=== PATIENT | male | born 1985 | race Caucasian/White ===

== ENCOUNTER → 2020-04-20 | Outpatient (CLI) | payer OTHER ==
--- NOTE | 2020-04-20 15:15 | XR ---
EXAMINATION TYPE: XR thoracic spine complete DATE OF EXAM: 04/20/2020 COMPARISON: None HISTORY: Lifting injury, pain TECHNIQUE: Three-view thoracic spine FINDINGS: There are 12 thoracic type vertebral bodies. Pedicles are intact. Disc heights are preserve d. Vertebral body heights are preserved. IMPRESSION: 1. Normal three-view thoracic spine.
--- NOTE | 2020-04-20 16:34 | XR ---
EXAMINATION TYPE: XR cervical spine comp DATE OF EXAM: 04/20/2020 COMPARISON: None HISTORY: Pain TECHNIQUE: Five-view cervical spine. FINDINGS: There is disc space narrowing C6-7. There is a kyphosis centered at C6-7. Posterior spinal lamellar line is intact. Prevertebral space is normal. Some mild side bending towards the left is pre sent. There is right foraminal narrowing at C2-3 and minimally at C5-6. Left foramen may has some min imal diffuse foraminal narrowing. Remaining disc heights are preserved. Vertebral body heights are preserved. Odontoid is obscured with overlying occiput. IMPRESSION: 1. Degenerative disc changes C6-7. 2. Lower cervical spine kyphosis.
== END | disposition home or self-care (01) ==
LOC: RADXRMAIN 14:24
PROVIDERS: ATTEND Emergency Medicine
DX: M50.323 Other cervical disc degeneration at C6-C7 level (principal); M40.292 Other kyphosis, cervical region; S23.3XXA Sprain of ligaments of thoracic spine, initial encounter
CPT/HCPCS: 72050; 72072

== ENCOUNTER 2020-06-07 03:38 | Observation (INO) | payer BC ==
[2020-06-07] MEDS ORDERED: PANTOPRAZOLE 40 MG/10 ML VIAL IVP STA (04:01)
[2020-06-07] MEDS ORDERED: ONDANSETRON 4 MG/2 ML VIAL IVP STA (04:01)
[2020-06-07] MEDS ORDERED: SODIUM CHLORIDE 0.9% 1,000 ML IV STA (04:01)
--- NOTE | 2020-06-07 04:01 | ED ---
Abdominal Pain HPI - General Chief Complaint: Abdominal Pain Stated Complaint: abd pain Time Seen by Provider: 06/07/20 03:46 Source: patient Mode of arrival: ambulatory Limitations: no limitations - History of Present Illness Initial Comments: Wilton is a 34-year-old male who presents to the ER this morning for evaluation of abdominal pain. She reports that he woke from sleep around 1 AM with lower quadrant abdominal pain with associated nausea. He's had 3 episodes of vomiting in the last time noted some blood in his vomitus. Patient does report he's been suffering from acid reflux lately, he lost his job approximately 6 weeks ago and is put on weight believes this is contributing to his acid reflux. Patient reports that he has significant pain in his lower abdomen most severe on the right lower quadrant. Last bowel movement was yesterday and was normal in color caliber and consistency. He has no GI history or history of any ulcer colitis or Crohn's. No history of previous surgeries. - Related Data Home Medications Medication Instructions Recorded Confirmed FLUoxetine HCL [PROzac] 40 mg PO DAILY@1730 06/07/20 06/07/20 Famotidine [Pepcid AC] 10 mg PO BID PRN 06/07/20 06/07/20 Multivitamins, Thera [Multivitamin 1 tab PO DAILY 06/07/20 06/07/20 (formulary)] hydrOXYzine HCL [Atarax] 25 mg PO DAILY PRN 06/07/20 06/07/20 traZODone HCL 50 mg PO HS 06/07/20 06/07/20 Allergies Allergy/AdvReac Type Severity Reaction Status Date / Time aspirin Allergy Rash/Hives Verified 06/07/20 03:44 NSAIDS (Non-Steroidal Allergy Rash/Hives Verified 06/07/20 03:44 Anti-Inflamma Review of Systems ROS Statement: Those systems with pertinent positive or pertinent negative responses have been documented in the HPI. ROS Other: All systems not noted in ROS Statement are negative. Past Medical History Additional Past Medical History / Comment(s): anxiety Past Surgical History: No Surgical Hx Reported Past Psychological History: Anxiety, Depression Smoking Status: Current every day smoker Past Alcohol Use History: Occasional Past Drug Use History: None Reported General Exam - General Exam Comments Initial Comments: Physical Exam GENERAL: appears uncomfortable HENT: Normocephalic, Atraumatic. EYES: PERRL, EOMI PULMONARY: Unlabored respirations. CARDIOVASCULAR: RRR Warm and well perfused extremities ABDOMEN: tenderness to palpation in the right lower quadrant SKIN: No rashes or bruising : Deferred NEUROLOGIC: Alert and oriented Normal speech Normal gait MUSCULOSKELETAL: Moving all extremities with no apparent injury PSYCHIATRIC: No SI/HI Limitations: no limitations Course Vital Signs 06/07/20 03:40 Temperature 97.7 F Pulse Rate 93 Respiratory 20 Rate O2 Sat by Pulse 97 Oximetry Medical Decision Making - Medical Decision Making the patient was seen and evaluated history is obtained from patient has a history and physical exam are concerning for acute appendicitis given the right lower quadrant abdominal pain with associated nausea and vomiting Patient did have some streaky hematemesis with his last episode of vomiting but does have history of GERD, no significant blood loss labs reveal leukocytosis neutrophilia CT scan confirms an acute appendicitis CT results were discussed with Dr. Ring and who agrees with plan for nothing by mouth diet, IV fluids, pain management, Zosyn plan for OR the patient was updated and is agreeable - Lab Data Result diagrams: 06/07/20 04:08 06/07/20 04:08 Lab Results 06/07/20 06/07/20 06/07/20 Range/Units 04:08 04:08 04:08 WBC 15.7 H (3.8-10.6) k/uL RBC 4.82 (4.30-5.90) m/uL Hgb 14.4 (13.0-17.5) gm/dL Hct 42.2 (39.0-53.0) % MCV 87.7 (80.0-100.0) fL MCH 29.8 (25.0-35.0) pg MCHC 34.0 (31.0-37.0) g/dL RDW 12.7 (11.5-15.5) % Plt Count 228 (150-450) k/uL Neutrophils % 88 % Lymphocytes % 7 % Monocytes % 3 % Eosinophils % 2 % Basophils % 1 % Neutrophils # 13.8 H (1.3-7.7) k/uL Lymphocytes # 1.1 (1.0-4.8) k/uL Monocytes # 0.4 (0-1.0) k/uL Eosinophils # 0.3 (0-0.7) k/uL Basophils # 0.1 (0-0.2) k/uL Sodium 136 L (137-145) mmol/L Potassium 4.1 (3.5-5.1) mmol/L Chloride 108 H (98-107) mmol/L Carbon Dioxide 20 L (22-30) mmol/L Anion Gap 8 mmol/L BUN 14 (9-20) mg/dL Creatinine 0.86 (0.66-1.25) mg/dL Est GFR (CKD-EPI)AfAm >90 (>60 ml/min/1.73 sqM) Est GFR (CKD-EPI)NonAf >90 (>60 ml/min/1.73 sqM) Glucose 122 H (74-99) mg/dL Calcium 9.3 (8.4-10.2) mg/dL Total Bilirubin 0.4 (0.2-1.3) mg/dL AST 23 (17-59) U/L ALT 24 (4-49) U/L Alkaline Phosphatase 70 (38-126) U/L Total Protein 6.9 (6.3-8.2) g/dL Albumin 4.2 (3.5-5.0) g/dL Lipase 207 (23-300) U/L Urine Color Yellow Urine Appearance Clear (Clear) Urine pH 5.5 (5.0-8.0) Ur Specific [place] 1.019 (1.001-1.035) Urine Protein Negative (Negative) Urine Glucose (UA) Negative (Negative) Urine Ketones Negative (Negative) Urine Blood Negative (Negative) Urine Nitrite Negative (Negative) Urine Bilirubin Negative (Negative) Urine Urobilinogen <2.0 (<2.0) mg/dL Ur Leukocyte Esterase Negative (Negative) Disposition Clinical Impression: Acute appendicitis Disposition: ADMITTED IP TO THIS HOSP Condition: Stable Is patient prescribed a controlled substance at d/c from ED?: No
[2020-06-07 04:25] LABS: Basophils # (A) 0.1 k/uL (0-0.2); Basophils % (A) 1 %; Eosinophils # (A) 0.3 k/uL (0-0.7); Eosinophils % (A) 2 %; HCT 42.2 % (39.0-53.0); HGB 14.4 gm/dL (13.0-17.5); Lymphocytes # (A) 1.1 k/uL (1.0-4.8); Lymphocytes % (A) 7 %; MCH 29.8 pg (25.0-35.0); MCV 87.7 fL (80.0-100.0); Mean Platelet Volume 7.6; Monocytes # (A) 0.4 k/uL (0-1.0); Monocytes % (A) 3 %; Neutrophils # (A) 13.8 k/uL (1.3-7.7); Neutrophils % (A) 88 %; Platelet Count 228 k/uL (150-450); RBC 4.82 m/uL (4.30-5.90); RDW 12.7 % (11.5-15.5); WBC 15.7 k/uL (3.8-10.6)
[2020-06-07 04:26] LABS: Appearance,Urine Clear (Clear); Bilirubin,Urine Negative (Negative); Blood,Urine Negative (Negative); Color,Urine Yellow; Glucose,Urine (UA) Negative (Negative); Ketones,Urine Negative (Negative); Leukocyte Esterase,Urine Negative (Negative); Nitrite,Urine Negative (Negative); PH, Urine 5.5 (5.0-8.0); Protein,Urine Negative (Negative); Specific Gravity,Urine 1.019 (1.001-1.035); Urobilinogen,Urine <2.0 mg/dL (<2.0)
[2020-06-07 04:36] LABS: ALT 24 U/L (4-49); AST 23 U/L (17-59); African American GFR (CKD) >90 (>60 ml/min/1.73 sqM); Albumin 4.2 g/dL (3.5-5.0); Alkaline Phosphatase 70 U/L (38-126); Anion Gap 8 mmol/L; Blood Urea Nitrogen 14 mg/dL (9-20); Calcium 9.3 mg/dL (8.4-10.2); Carbon Dioxide 20 mmol/L (22-30); Chloride 108 mmol/L (98-107); Glucose 122 mg/dL (74-99); Lipase 207 U/L (23-300); Non-African American GFR(CKD) >90 (>60 ml/min/1.73 sqM); Potassium 4.1 mmol/L (3.5-5.1); Sodium 136 mmol/L (137-145); Total Bilirubin 0.4 mg/dL (0.2-1.3); Total Protein 6.9 g/dL (6.3-8.2)
--- NOTE | 2020-06-07 05:12 | CT ---
EXAM: CT Abdomen and Pelvis With Intravenous Contrast CLINICAL HISTORY: ITS.REASON CT Reason: appy TECHNIQUE: Axial computed tomography images of the abdomen and pelvis with intravenous contrast. CTDI is 24.87 mGy and DLP is 1074.9 mGy-cm. This CT exam was performed using one or more of the following dose reduction techniques: automated exposure control, adjustment of the mA and/or kV according to patient size, and/or use of iterative reconstruction technique. COMPARISON: No relevant prior studies available. FINDINGS: Lung bases: Unremarkable. ABDOMEN: Liver: Unremarkable. Gallbladder and bile ducts: Unremarkable. Pancreas: Unremarkable. Spleen: Unremarkable. Adrenals: Unremarkable. Kidneys and ureters: Unremarkable. Stomach and bowel: Unremarkable. PELVIS: Appendix: Dilated appendix measured to 11 mm with adjacent stranding suggesting acute nonperforated appendicitis. Bladder: Unremarkable. Reproductive: Unremarkable as visualized. ABDOMEN and PELVIS: Intraperitoneal space: Unremarkable. Bones/joints: No acute fracture. No dislocation. Soft tissues: Unremarkable. Vasculature: Unremarkable. Lymph nodes: Unremarkable. Other findings: Lower thorax is unremarkable IMPRESSION: Dilated appendix measuring up to 11 mm with adjacent stranding suggesting acute nonperforated appendicitis.
[2020-06-07] MEDS ORDERED: PIPERACILLIN-TAZOBACTAM 3.375 GM in SODIUM CHLORIDE 0.9% 100 ML IVPB STA (05:15)
[2020-06-07] MEDS ORDERED: NALOXONE 0.4 MG/ML 1 ML VIAL IV PRN (05:31)
[2020-06-07] MEDS ORDERED: MORPHINE SULFATE 4 MG/ML SYRINGE IV PRN (05:31)
[2020-06-07] MEDS: SODIUM CHLORIDE 0.9% 1,000 ML IV SCH ×3 (06:01→18:16)
[2020-06-07] MEDS ORDERED: NICOTINE 14MG/24HR PATCH TRANSDERM STA (09:49)
[2020-06-07] MEDS ORDERED: ONDANSETRON 4 MG/2 ML VIAL IVP PRN (09:49)
--- NOTE | 2020-06-07 09:56 | P.GSHP ---
History of Present Illness H&P Date: 06/07/20 CHIEF COMPLAINT: Right lower quadrant abdominal pain HISTORY OF PRESENT ILLNESS: This is a 34-year-old male with a known history of nicotine dependence, GERD and anxiety. Patient presents to emergency room with complaints of sharp right lower quadrant pain that started around 1 AM. He he reports the pain is about 8 out of 10. He did have some nausea and vomiting. He also reports that he has had some achiness in the right lower abdomen for a little while now. The sharp pain started this morning. He denies any fever, chills or sweats. Denies any change in bowel movements. Patient has been admitted for acute appendicitis. PAST MEDICAL HISTORY: See list. PAST SURGICAL HISTORY: See list. MEDICATIONS: See list. ALLERGIES: See list. SOCIAL HISTORY: No illicit drug use. REVIEW OF SYSTEMS: CONSTITUTIONAL: Denies fever or chills. HEENT: Denies blurred vision, vision changes, or eye pain. Denies hemoptysis CARDIOVASCULAR: Denies chest pain or pressure. RESPIRATORY: No shortness of breath. GASTROINTESTINAL: See HPI for pertinent findings HEMATOLOGIC: Denies bleeding disorders. GENITOURINARY: Denies any blood in urine or increased urinary frequency. SKIN: Denies pruitis. Denies rash. PHYSICAL EXAM: VITAL SIGNS: Reviewed GENERAL: Well-developed in no acute distress. HEENT: No sclera icterus. Extraocular movements grossly intact. Moist buccal mucosa. Head is atraumatic, normocephalic. No nasal drainage. ABDOMEN: Soft. Nondistended. Tenderness in the right lower quadrant NEUROLOGIC: Alert and oriented. Cranial nerves II through XII grossly intact. LABORATORY DATA: WBC 15.7 Lipase 207 LFTs normal UA negative IMAGING: Computed tomography scan of abdomen and pelvis shows dilated appendix measuring up to 11 mm with adjacent stranding suggesting acute nonperforated appendicitis ASSESSMENT: 1. Acute appendicitis 2. Nicotine dependence 3. Generalized anxiety disorder PLAN: -Patient scheduled for laparoscopic appendectomy today with Dr. Ring -Keep patient nothing by mouth -Continue IV fluids -Continue IV antibiotics -Add nicotine patch Physician Virologist note has been reviewed by physician. Signing provider agrees with the documented findings, assessment, and plan of care. Past Medical History Additional Past Medical History / Comment(s): anxiety History of Any Multi-Drug Resistant Organisms: None Reported Past Surgical History: No Surgical Hx Reported Smoking Status: Current every day smoker Medications and Allergies Home Medications Medication Instructions Recorded Confirmed Type FLUoxetine HCL [PROzac] 40 mg PO DAILY@1730 06/07/20 06/07/20 History Famotidine [Pepcid AC] 10 mg PO BID PRN 06/07/20 06/07/20 History Multivitamins, Thera [Multivitamin 1 tab PO DAILY 06/07/20 06/07/20 History (formulary)] hydrOXYzine HCL [Atarax] 25 mg PO DAILY PRN 06/07/20 06/07/20 History traZODone HCL 50 mg PO HS 06/07/20 06/07/20 History Allergies Allergy/AdvReac Type Severity Reaction Status Date / Time aspirin Allergy Rash/Hives Verified 06/07/20 03:44 NSAIDS (Non-Steroidal Allergy Rash/Hives Verified 06/07/20 03:44 Anti-Inflamma Surgical - Exam Vital Signs Temp Pulse Resp Pulse Ox 97.7 F 93 20 97 06/07/20 03:40 06/07/20 03:40 06/07/20 03:40 06/07/20 03:40 Results - Labs 06/07/20 04:08 06/07/20 04:08 Abnormal Lab Results - Last 24 Hours (Table) 06/07/20 06/07/20 Range/Units 04:08 04:08 WBC 15.7 H (3.8-10.6) k/uL Neutrophils # 13.8 H (1.3-7.7) k/uL Sodium 136 L (137-145) mmol/L Chloride 108 H (98-107) mmol/L Carbon Dioxide 20 L (22-30) mmol/L Glucose 122 H (74-99) mg/dL Diabetes panel 06/07/20 Range/Units 04:08 Sodium 136 L (137-145) mmol/L Potassium 4.1 (3.5-5.1) mmol/L Chloride 108 H (98-107) mmol/L Carbon Dioxide 20 L (22-30) mmol/L BUN 14 (9-20) mg/dL Creatinine 0.86 (0.66-1.25) mg/dL Glucose 122 H (74-99) mg/dL Calcium 9.3 (8.4-10.2) mg/dL AST 23 (17-59) U/L ALT 24 (4-49) U/L Alkaline Phosphatase 70 (38-126) U/L Total Protein 6.9 (6.3-8.2) g/dL Albumin 4.2 (3.5-5.0) g/dL Calcium panel 06/07/20 Range/Units 04:08 Calcium 9.3 (8.4-10.2) mg/dL Albumin 4.2 (3.5-5.0) g/dL Pituitary panel 06/07/20 Range/Units 04:08 Sodium 136 L (137-145) mmol/L Potassium 4.1 (3.5-5.1) mmol/L Chloride 108 H (98-107) mmol/L Carbon Dioxide 20 L (22-30) mmol/L BUN 14 (9-20) mg/dL Creatinine 0.86 (0.66-1.25) mg/dL Glucose 122 H (74-99) mg/dL Calcium 9.3 (8.4-10.2) mg/dL Adrenal panel 06/07/20 Range/Units 04:08 Sodium 136 L (137-145) mmol/L Potassium 4.1 (3.5-5.1) mmol/L Chloride 108 H (98-107) mmol/L Carbon Dioxide 20 L (22-30) mmol/L BUN 14 (9-20) mg/dL Creatinine 0.86 (0.66-1.25) mg/dL Glucose 122 H (74-99) mg/dL Calcium 9.3 (8.4-10.2) mg/dL Total Bilirubin 0.4 (0.2-1.3) mg/dL AST 23 (17-59) U/L ALT 24 (4-49) U/L Alkaline Phosphatase 70 (38-126) U/L Total Protein 6.9 (6.3-8.2) g/dL Albumin 4.2 (3.5-5.0) g/dL
[2020-06-07] MEDS ORDERED: IV FLUID CONTINUATION 1,000 ML IV ONE (15:48)
[2020-06-07] MEDS ORDERED: HEPARIN SODIUM,PORCINE 5,000 UNIT/ML 1 ML VIAL ONE (16:28)
[2020-06-07] MEDS ORDERED: BUPIVACAINE (PF) 0.25% 30 ML VIAL SQ ONE (17:02)
--- NOTE | 2020-06-07 17:22 | P.OP ---
Date of Procedure: 06/07/20 Preoperative Diagnosis: Acute appendicitis Postoperative Diagnosis: Acute appendicitis Procedure(s) Performed: Laparoscopic appendectomy Anesthesia: LANRE Surgeon: Ken Ring Estimated Blood Loss (ml): 5 Pathology: other (Appendix) Condition: stable Disposition: PACU Description of Procedure: The patient's placed on the operating table in the supine position. The patient received general anesthesia. The abdomen was prepped and draped in the usual sterile fashion. The skin was anesthetized 1% local Xylocaine at the trocar sites. Using an 11 blade the skin was incised at the umbilicus. The umbilicus was grasped with a [place] clamp and then a Veress needle was placed into the peritoneal cavity. Position of the Veress needle was confirmed with positive drop test. After adequate insufflation a 5 mm trocar was placed into the peritoneal cavity. The abdomen was further insufflated. And then the laparoscope was placed in the peritoneal cavity. Next a 5 mm trocar was placed in the midline suprapubic position. And then a 10 mm trocar was placed in the midline epigastric position. The patient was rotated with the right side up and in Trendelenburg. The appendix was visualized. The appendix appeared to be inflamed. The appendix was grasped and then using the Harmonic scissors the mesoappendix was divided. A PDS Endoloop was then placed around the base of the appendix. And then the appendix was divided using Harmonic scissors. The appendix was placed into an Endo Catch and brought out through the 10 mm trocar site. The abdomen was irrigated. There is no bleeding seen. The trochars withdrawn. The skin was closed interrupted 3-0 Monocryl suture. Dermabond dressing was applied. Patient was sent to recovery room in stable condition.
[2020-06-07] MEDS ORDERED: ONDANSETRON 4 MG TAB PO PRN (17:23)
[2020-06-07] MEDS ORDERED: MORPHINE SULFATE 4 MG/ML SYRINGE IVP ONE (17:48)
[2020-06-07] MEDS: PIPERACILLIN-TAZOBACTAM 3.375 GM in SODIUM CHLORIDE 0.9% 100 ML IVPB SCH (18:41)
[2020-06-07] MEDS ORDERED: hydrOXYzine HCL 25 MG TAB PO PRN (19:06)
[2020-06-07] MEDS: HYDROcodone/APAP 7.5-325MG 1 EACH TAB PO PRN (20:00)
[2020-06-07] MEDS ORDERED: traZODone HCL 50 MG TAB PO SCH (21:00)
[2020-06-08] MEDS: SODIUM CHLORIDE 0.9% 1,000 ML IV SCH (00:23)
[2020-06-08] MEDS: PIPERACILLIN-TAZOBACTAM 3.375 GM in SODIUM CHLORIDE 0.9% 100 ML IVPB SCH ×2 (01:05→08:00)
[2020-06-08] MEDS: HYDROcodone/APAP 7.5-325MG 1 EACH TAB PO PRN ×2 (03:41→10:37)
--- NOTE | 2020-06-08 05:25 | CONS ---
CONSULTATION REASON FOR CONSULTATION: Advice regarding anxiety and other medical issues requested by Dr. Ring. HISTORY OF PRESENT ILLNESS: This 34-year-old gentleman with a past medical history of anxiety, depression, history of smoking, was admitted to [facility] with complaints of abdominal pain for several days. The CAT scan of the abdomen showed dilated appendix measuring up to 11 cm with adjacent stranding. The patient underwent a laparoscopic appendectomy by Dr. Ring. The patient tolerated the procedure well. The patient being closely monitored at this time. There is no history of any fever or rigors. No history of headache, loss of consciousness, seizures at this time. No history of chest pain or palpitation. PAST MEDICAL HISTORY: History anxiety, depression. History of nicotine dependence. MEDICATIONS: Medications prior to admission, multivitamins, Pepcid, Prozac, Atarax, trazodone. ALLERGIES: ASPIRIN, NSAIDS. FAMILY HISTORY: No history of heart disease or strokes in the family. SOCIAL HISTORY: History of smoking. No history of alcohol intake. REVIEW OF SYSTEMS: ENT: No diminished hearing or diminished vision. CARDIOVASCULAR SYSTEM: No angina. RESPIRATORY SYSTEM: As mentioned earlier. GI: As mentioned earlier. : No dysuria. NERVOUS SYSTEM: No numbness or weakness. ALLERGY/IMMUNOLOGY: No history of asthma or hayfever. MUSCULOSKELETAL: As mentioned earlier. HEMATOLOGY: No history of anemia. ENDOCRINE: No history of diabetes mellitus or hypothyroidism. CONSTITUTIONAL: As mentioned earlier. DERMATOLOGY: Negative. RHEUMATOLOGY: Negative. PSYCHIATRY: As mentioned earlier. PHYSICAL EXAMINATION: The patient is alert and oriented x3. Pulse is 66, blood pressure 134/74, respirations 16, temperature 98 degrees, pulse ox 99% on 2 L. HEENT: Conjunctivae normal. NECK: No jugular venous distention. CARDIOVASCULAR: S1, S2 muffed. RESPIRATORY: Breath sounds diminished at the bases. No rhonchi, no crackles. ABDOMEN: Soft, status post surgery. LEGS: No edema, no swelling. NERVOUS SYSTEM: Higher function as mentioned earlier. Moves all 4 limbs. No focal motor or sensory deficits. LYMPHATICS: No lymphadenopathy of the neck, axillae or groin. SKIN: No ulcer, rash or bleeding. JOINTS: No active deforming arthropathy. LABS: WBC 15.7. Sodium 136. ASSESSMENT: 1. Acute appendicitis, status post laparoscopic appendectomy. 2. Increased WBC. 3. Mild hyponatremia. 4. Increased random blood sugar. 5. History of anxiety, depression. 6. History of continued ongoing nicotine dependence. RECOMMENDATIONS AND DISCUSSION: This 34-year-old gentleman presented after surgery. At this time I recommend to continue current medication, home medications, broad-spectrum IV antibiotics initiated. Smoking cessation advised. Proton pump inhibitors. DVT prophylaxis. We will follow the patient closely with you. Thank you Dr. Ring for letting us participate in the care of this patient. [id number] / IJN: [id number] /
[2020-06-08 07:56] VITALS: BP 99/63; PULSE 62; RESP 16; TEMP 97.9
[2020-06-08 07:58] LABS: Basophils # (A) 0.1 k/uL (0-0.2); Basophils % (A) 1 %; Eosinophils # (A) 0.2 k/uL (0-0.7); Eosinophils % (A) 3 %; HCT 38.5 % (39.0-53.0); HGB 12.5 gm/dL (13.0-17.5); Lymphocytes # (A) 1.8 k/uL (1.0-4.8); Lymphocytes % (A) 24 %; MCH 29.4 pg (25.0-35.0); MCHC 32.6 g/dL (31.0-37.0); MCV 90.2 fL (80.0-100.0); Monocytes # (A) 0.4 k/uL (0-1.0); Monocytes % (A) 6 %; Neutrophils # (A) 4.9 k/uL (1.3-7.7); Neutrophils % (A) 65 %; Platelet Count 217 k/uL (150-450); RBC 4.26 m/uL (4.30-5.90); WBC 7.5 k/uL (3.8-10.6)
[2020-06-08 08:02] LABS: African American GFR (CKD) >90 (>60 ml/min/1.73 sqM); Anion Gap 4 mmol/L; Blood Urea Nitrogen 8 mg/dL (9-20); Calcium 8.1 mg/dL (8.4-10.2); Carbon Dioxide 25 mmol/L (22-30); Chloride 110 mmol/L (98-107); Glucose 107 mg/dL (74-99); Non-African American GFR(CKD) >90 (>60 ml/min/1.73 sqM); Potassium 3.9 mmol/L (3.5-5.1); Sodium 139 mmol/L (137-145)
[2020-06-08] MEDS ORDERED: ENOXAPARIN 40 MG/0.4 ML SYRINGE SQ SCH (09:00)
[2020-06-08] MEDS ORDERED: NICOTINE 14MG/24HR PATCH TRANSDERM SCH (09:00)
[2020-06-08] MEDS ORDERED: MULTIVITAMINS, THERA 1 EACH TAB PO SCH (09:00)
[2020-06-08] MEDS ORDERED: PANTOPRAZOLE 40 MG/10 ML VIAL IVP SCH (09:00)
--- NOTE | 2020-06-08 12:49 | P.DS ---
Providers Date of admission: 06/07/20 05:31 Expected date of discharge: 06/08/20 Attending physician: Ken Ring Consults: 06/07/20 13:37 Consult Physician Routine Consulting Provider: Evangelista Silverio Consult Reason/Comments: medical management Do you want consulting provider notified?: Yes Primary care physician: Norberto Turcios MD Hospital Course: Discharge diagnosis 1. Acute appendicitis status post laparoscopic appendectomy Hospital course This is a 34-year-old male with a known history of nicotine dependence, GERD and anxiety. Patient presents to emergency room with complaints of sharp right lower quadrant pain that started around 1 AM. He he reports the pain is about 8 out of 10. He did have some nausea and vomiting. Computed tomography scan of abdomen and pelvis shows dilated appendix measuring up to 11 mm with adjacent stranding suggesting acute nonperforated appendicitis. White count was elevated. Patient underwent laparoscopic appendectomy. Patient tolerated surgery well. His pain is controlled. He denies any nausea or vomiting. He's tolerating regular diet. He is afebrile. White count has normalized. Patient is stable for discharge. Computed tomography scan of abdomen and pelvis shows dilated appendix measuring up to 11 mm with adjacent stranding suggesting acute nonperforated appendicitis Patient Condition at Discharge: Stable Plan - Discharge Summary Discharge Rx Participant: No New Discharge Prescriptions: New Docusate [Colace] 100 mg PO BID #30 capsule Hydrocodone/Acetaminophen [[place] 5-325] 1 tab PO Q6HR PRN 3 Days #12 tab PRN Reason: Pain Continue Multivitamins, Thera [Multivitamin (formulary)] 1 tab PO DAILY FLUoxetine HCL [PROzac] 40 mg PO DAILY@1730 hydrOXYzine HCL [Atarax] 25 mg PO DAILY PRN PRN Reason: Anxiety traZODone HCL 50 mg PO HS Famotidine [Pepcid AC] 10 mg PO BID PRN PRN Reason: GERD Discharge Medication List FLUoxetine HCL [PROzac] 40 mg PO DAILY@1730 06/07/20 [History] Famotidine [Pepcid AC] 10 mg PO BID PRN 06/07/20 [History] Multivitamins, Thera [Multivitamin (formulary)] 1 tab PO DAILY 06/07/20 [History] hydrOXYzine HCL [Atarax] 25 mg PO DAILY PRN 06/07/20 [History] traZODone HCL 50 mg PO HS 06/07/20 [History] Docusate [Colace] 100 mg PO BID #30 capsule 06/08/20 [Rx] Hydrocodone/Acetaminophen [[place] 5-325] 1 tab PO Q6HR PRN 3 Days #12 tab 06/08/20 [Rx] Follow up Appointment(s)/Referral(s): Norberto Turcios MD [Primary Care Provider] - 1-2 days Ken Ring MD [STAFF PHYSICIAN] - 1 Week Activity/Diet/Wound Care/Special Instructions: No driving while taking [place] No lifting over 10 pounds You may shower. No soaking or tub baths for 2 weeks Very light activity until you are reevaluated at your follow up appointment with your surgeon Diet regular Discharge Disposition: HOME SELF-CARE
[2020-06-08] MEDS ORDERED: FLUoxetine HCL 20 MG CAP PO SCH (17:30)
--- NOTE | 2020-06-08 20:58 | PN ---
PROGRESS NOTE DATE OF SERVICE: 06/08/2020 This 34-year-old gentleman who presented with acute appendicitis underwent laparoscopic appendectomy. No chest pain. No palpitations. No fever. PHYSICAL EXAMINATION: Alert and oriented x3. Pulse is 62, blood pressure 99/63, respirations 16, temperature 97.2, pulse ox 94% on room air. HEENT: Conjunctivae normal. NECK: No jugular venous distention. CARDIOVASCULAR SYSTEM: S1, S2 muffled. RESPIRATORY SYSTEM: Breath sounds diminished at the bases. No rhonchi. No crackles. ABDOMEN: Soft. Status post surgery. LEGS: No edema. No swelling. NERVOUS SYSTEM: No focal deficit. LABS: WBC 7.5, hemoglobin 12.4. Sodium 139, potassium 3.9. ASSESSMENT: 1. Acute appendicitis, status post laparoscopic appendectomy. 2. Increased white count. 3. Mild hyponatremia. 4. Increased random blood sugar. 5. History of anxiety, depression. 6. History of continued ongoing nicotine dependence. RECOMMENDATIONS AND DISCUSSION: I recommend to continue current medications, continue with the monitoring, symptomatic treatment. Continue incentive spirometry. Resume the home medications. DVT prophylaxis. Follow closely with the primary physician. Thank you, Dr. Ring. MMODL / IJN: [id number] /
[2020-06-09] MEDS ORDERED: PANTOPRAZOLE 40 MG TABLET PO SCH (07:30)
== END 2020-06-08 15:41 | disposition home or self-care (01) ==
LOC: EC 03:38 → 3NCARDOBS 05:31
PROVIDERS: ADMIT Surgery; ATTEND Surgery
DX: K35.80 Unspecified acute appendicitis (principal); E87.1 Hypo-osmolality and hyponatremia; R73.9 Hyperglycemia, unspecified; K21.9 Gastro-esophageal reflux disease without esophagitis; R63.5 Abnormal weight gain; F41.1 Generalized anxiety disorder; F32.9 Major depressive disorder, single episode, unspecified; F17.200 Nicotine dependence, unspecified, uncomplicated; Z68.31 Body mass index [BMI] 31.0-31.9, adult; Z79.899 Other long term (current) drug therapy; Z88.6 Allergy status to analgesic agent; K08.89 Other specified disorders of teeth and supporting structures
CPT/HCPCS: 96374; 96375; 99285; 36415; 88304; 80053; 80048; 83690; 85025 ×2; 81003; 74177; 44970; G0378 ×2; S4990 ×2; J2543 ×2; J2270; J2405; J1650; C9113 ×2; Q9967

== ENCOUNTER → 2020-07-28 | Outpatient (CLI) | payer BC ==
[2020-07-28 08:14] LABS: Basophils # (A) 0.1 k/uL (0-0.2); Basophils % (A) 1 %; Eosinophils # (A) 0.2 k/uL (0-0.7); Eosinophils % (A) 3 %; HCT 45.3 % (39.0-53.0); HGB 15.4 gm/dL (13.0-17.5); Lymphocytes # (A) 1.3 k/uL (1.0-4.8); Lymphocytes % (A) 22 %; MCH 29.9 pg (25.0-35.0); MCHC 33.9 g/dL (31.0-37.0); MCV 88.2 fL (80.0-100.0); Mean Platelet Volume 7.8; Monocytes # (A) 0.3 k/uL (0-1.0); Monocytes % (A) 5 %; Neutrophils # (A) 4.1 k/uL (1.3-7.7); Neutrophils % (A) 67 %; Platelet Count 189 k/uL (150-450); RBC 5.14 m/uL (4.30-5.90); RDW 12.4 % (11.5-15.5); WBC 6.2 k/uL (3.8-10.6)
[2020-07-28 17:21] LABS: Albumin 4.9 g/dL (3.80-4.90); Albumin/Globulin Ratio 2.58 (1.60-3.17); Anion Gap 9.1 mmol/L (4.00-12.00); Calcium 9.3 mg/dL (8.7-10.3); Carbon Dioxide 24.9 mmol/L (21.6-31.8); Chol/HDL Ratio 4.96; Globulin 1.9 g/dL (1.6-3.3); LDL Cholesterol,Calculated 147.6 mg/dL (0.0-131.0); Non-African American GFR(CKD) 117.4 (60.0-200.0); Potassium 4.3 mmol/L (3.5-5.5); Total Bilirubin 0.3 mg/dL (0.3-1.2); Total Protein 6.8 g/dL (6.2-8.2); VLDL Calculation 34.4 mg/dL (5.00-40.00)
[2020-07-28 17:30] LABS: T4, Free (Free Thyroxine) 1.2 ng/dL (0.80-1.80)
[2020-07-28 19:12] LABS: Hemoglobin A1C 5.3 % (4.0-6.0)
== END | disposition home or self-care (01) ==
LOC: LABWHC1 07:31
PROVIDERS: ATTEND Family Medicine
DX: Z00.01 Encounter for general adult medical examination with abnormal findings (principal); E66.9 Obesity, unspecified; Z68.30 Body mass index [BMI] 30.0-30.9, adult
CPT/HCPCS: 36415; 80053; 80061; 83036; 84439; 84443; 85025

== ENCOUNTER 2023-03-21 16:46 | Emergency (ER) | payer BC ==
[2023-03-21] MEDS ORDERED: DIPH,PERTUS(ACELL)TETVAC-LF 0.5 ML VIAL IM ONE (17:06)
[2023-03-21] MEDS ORDERED: LIDOCAINE 1% INJ 10MG/ML (20 ML MDV) SQ ONE (17:07)
[2023-03-21 19:00] VITALS: BP 127/84; PULSE 89; RESP 18; TEMP 98
--- NOTE | 2023-03-21 19:03 | ED ---
General Adult HPI - General Chief complaint: Wound/Laceration Stated complaint: laceration R hand Time Seen by Provider: 03/21/23 17:06 Source: patient Mode of arrival: ambulatory Limitations: no limitations - History of Present Illness Initial comments: A 37-year-old male presenting to the ED with a chief complaint of laceration. Patient states that he was washing a glass when another glass fell on top of it causing it to break. States that the glass shards cut his right first finger. Tetanus status unknown. No other injuries at this time. No other complaints. - Related Data Home Medications Medication Instructions Recorded Confirmed FLUoxetine HCL [PROzac] 40 mg PO DAILY@1730 06/07/20 06/07/20 Famotidine [Pepcid AC] 10 mg PO BID PRN 06/07/20 06/07/20 Multivitamins, Thera [Multivitamin 1 tab PO DAILY 06/07/20 06/07/20 (formulary)] hydrOXYzine HCL [Atarax] 25 mg PO DAILY PRN 06/07/20 06/07/20 traZODone HCL 50 mg PO HS 06/07/20 06/07/20 Previous Rx's Medication Instructions Recorded Docusate [Colace] 100 mg PO BID #30 capsule 06/08/20 Hydrocodone/Acetaminophen [[place] 1 tab PO Q6HR PRN 3 Days #12 tab 06/08/20 5-325] Cephalexin [Keflex] 500 mg PO Q6HR 5 Days #20 cap 03/21/23 Allergies Allergy/AdvReac Type Severity Reaction Status Date / Time aspirin Allergy Rash/Hives Verified 03/21/23 17:06 NSAIDS (Non-Steroidal Allergy Rash/Hives Verified 03/21/23 17:06 Anti-Inflamma Review of Systems ROS Statement: Those systems with pertinent positive or pertinent negative responses have been documented in the HPI. ROS Other: All systems not noted in ROS Statement are negative. Past Medical History Additional Past Medical History / Comment(s): anxiety History of Any Multi-Drug Resistant Organisms: None Reported Past Surgical History: No Surgical Hx Reported Past Psychological History: Anxiety, Depression Smoking Status: Former smoker Past Alcohol Use History: None Reported Past Drug Use History: Marijuana General Exam Limitations: no limitations General appearance: alert, in no apparent distress Eye exam: Present: normal appearance Neck exam: Present: normal inspection Respiratory exam: Present: normal lung sounds bilaterally Cardiovascular Exam: Present: regular rate, normal rhythm GI/Abdominal exam: Present: soft Extremities exam: Present: other (Partial Skin avulsion of the right first finger. Small approximately half a centimeter avulsion of the dorsal aspect at the second MCP joint. Full strength and sensation of the fingers with opposition and extension of the thumb is intact. Good Capillary refill.) Neurological exam: Present: alert, oriented X3 Course Vital Signs 03/21/23 03/21/23 17:02 18:59 Temperature 98.1 F 98 F Pulse Rate 106 H 89 Respiratory 20 18 Rate Blood Pressure 131/90 127/84 O2 Sat by Pulse 98 98 Oximetry Procedures - Laceration Laceration #1 Indication: laceration Site: upper extremity Size (cm): 3 (3 x 3 cm partial skin avulsion) Description: linear, irregular Sedation/Analgesia: none Anesthetic Used: lidocaine 1% Anesthesia Technique: local infiltration Amount (mls): 5 Pre-repair: wound explored, irrigated extensively Type of Sutures: nylon Size of Sutures: 5-0 Number of Sutures: 12 Patient Tolerated Procedure: well, no complications Medical Decision Making - Medical Decision Making Was pt. sent in by a medical professional or institution ([facility], [employer], urgent care, hospital, or care home...) When possible be specific @ -No Did you speak to anyone other than the patient for history (EMS, parent, family, police, friend...)? What history was obtained from this source @ -No Did you review nursing and triage notes (agree or disagree)? Why? @ -I reviewed and agree with nursing and triage notes Were old charts reviewed (outside hosp., previous admission, EMS record, old EKG, old radiological studies, urgent care reports/EKG's, care home records)? Report findings @ -No old charts were reviewed Differential Diagnosis (chest pain, altered mental status, abdominal pain women, abdominal pain men, vaginal bleeding, weakness, fever, dyspnea, syncope, headache, dizziness, GI bleed, back pain, seizure, CVA, palpatations, mental health, musculoskeletal)? @ -Laceration, acute tendon injury, acute fracture. Is not meant to be an all- inclusive list. EKG interpreted by me (3pts min.). @ -None X-rays interpreted by me (1pt min.). @ -None done CT interpreted by me (1pt min.). @ -None done U/S interpreted by me (1pt. min.). @ -None done What testing was considered but not performed or refused? (CT, X-rays, U/S, labs)? Why? @ -None What meds were considered but not given or refused? Why? @ -None Did you discuss the management of the patient with other professionals (professionals i.e. [employer]Master, PA, [employer] TR[employer] WORKER, lab, RT, psych nurse, psychologist social, club waiter/waitress, teacher, chief client officer, watch caser)? Give summary @ -No Was smoking cessation discussed for >3mins.? @ -No Was critical care preformed (if so, how long)? @ -No Were there social determinants of health that impacted care today? How? (Homelessness, low income, unemployed, alcoholism, drug addiction, transportation, low edu. Level, literacy, decrease access to med. care, fdc, rehab)? @ -No Was there de-escalation of care discussed even if they declined (Discuss DNR or withdrawal of care, Hospice)? DNR status @ -No What co-morbidities impacted this encounter? (DM, HTN, Smoking, COPD, CAD, Cancer, CVA, ARF, Chemo, Hep., AIDS, mental health diagnosis, sleep apnea, morbid obesity)? @ -None Was patient admitted / discharged? Hospital course, mention meds given and route, prescriptions, significant lab abnormalities, going to OR and other pertinent info. @ -Discharge. Patient had laceration/avulsion.. Please see procedure note for further details. Other area of skin avulsion unable to be repaired. Tetanus updated. This was irrigated well and covered with antibiotic ointment. Discussed wound care. Discharged home in stable condition with prescription for Keflex. Discussed return precautions with patient who verbalizes agreement. Undiagnosed new problem with uncertain prognosis? @ -No Drug Therapy requiring intensive monitoring for toxicity (Heparin, Nitro, Insulin, Cardizem)? @ -No Were any procedures done? @ -Yes, laceration repair Diagnosis/symptom? @ -Laceration/avulsion of the right first finger. Acute, or Chronic, or Acute on Chronic? @ -Acute Uncomplicated (without systemic symptoms) or Complicated (systemic symptoms)? @ -Uncomplicated Side effects of treatment? @ -No Exacerbation, Progression, or Severe Exacerbation? @ -No Poses a threat to life or bodily function? How? (Chest pain, [place], [place], pneumonia, PE, COPD, DKA, ARF, appy, cholecystitis, CVA, Diverticulitis, Homicidal, Suicidal, threat to staff... and all critical care pts) @ -No Disposition Clinical Impression: Laceration Disposition: HOME SELF-CARE Instructions (If sedation given, give patient instructions): Care For Your Stitches (ED), Acute Wound Care (ED) Additional Instructions: Please return to the Emergency Department if symptoms worsen or any other concerns. Please return in 10-14 days for suture removal. Monitor for signs of infection. Prescriptions: Cephalexin [Keflex] 500 mg PO Q6HR 5 Days #20 cap Is patient prescribed a controlled substance at d/c from ED?: No Referrals: Norberto Turcios MD [Primary Care Provider] - 1-2 days Time of Disposition: 19:02
[2023-03-21] MEDS ORDERED: BACITRACIN OINT 1 EACH PACKET TOPICAL ONE (19:10)
== END 2023-03-21 19:26 | disposition home or self-care (01) ==
LOC: EC 16:46
DX: S61.210A Laceration without foreign body of right index finger without damage to nail, initial encounter (principal); F41.9 Anxiety disorder, unspecified; F32.A Depression, unspecified; Z87.891 Personal history of nicotine dependence; F12.90 Cannabis use, unspecified, uncomplicated; Z88.6 Allergy status to analgesic agent; Z79.899 Other long term (current) drug therapy; Z23 Encounter for immunization; W25.XXXA Contact with sharp glass, initial encounter; Y93.G1 Activity, food preparation and clean up
CPT/HCPCS: 90715; 99282; 90471; 12002; J2001